=== PATIENT | female | born 1960 | race Two or more races ===

== ENCOUNTER → 2018-07-29 | Outpatient (CLI) | payer OTHER | END | disposition home or self-care (01) | LOC: HKI 14:26 | DX: M17.0 Bilateral primary osteoarthritis of knee (principal) | CPT/HCPCS: 73564; 73564-50 ==

== ENCOUNTER → 2018-09-02 | Outpatient (CLI) | payer OTHER | END | disposition home or self-care (01) | LOC: HKI 14:57 | DX: M23.207 Derangement of unspecified meniscus due to old tear or injury, left knee (principal); M23.206 Derangement of unspecified meniscus due to old tear or injury, right knee | CPT/HCPCS: Z7500 ==

== ENCOUNTER → 2018-11-10 | Outpatient (CLI) | payer OTHER | END | disposition home or self-care (01) | LOC: HKI 09:00 | DX: M17.0 Bilateral primary osteoarthritis of knee (principal) | CPT/HCPCS: Z7500 ==